=== PATIENT | male | born 1990 | race Caucasian/White ===

== ENCOUNTER 2017-03-30 14:02 | Inpatient (IN) | payer OTHER ==
[2017-03-30 15:16] VITALS: BMI 37.3
--- NOTE | 2017-03-30 19:01 | HP ---
CIWA Score - CIWA Score Nausea/Vomitin-No Nausea/No Vomiting Muscle Tremors: 4-Moderate,w/Arms Extend Anxiety: 4-Mod. Anxious/Guarded Agitation: 3 Paroxysmal Sweats: 1-Minimal Palms Moist Orientation: 0-Oriented Tacttile Disturbances: 0-None Auditory Disturbances: 0-None Visual Disturbances: 0-None Headache: 1-Very Mild CIWA-Ar Total Score: 13 Admission ROS BHS - HPI Chief Complaint: withdrawal sx Allergies/Adverse Reactions: Allergies Allergy/AdvReac Type Severity Reaction Status Date / Time No Known Allergies Allergy Verified 03/30/17 17:15 History of Present Illness: 27 years old male with long history of xanax nicotine dependence has hiv and chronic back pain and anxiety is admitted to detox Exam Limitations: No Limitations - Ebola screening Have you traveled outside of the country in the last 21 days: No Have you had contact with anyone from an Ebola affected area: No Have you been sick,other than usual withdrawal symptoms: No Do you have a fever: No - Review of Systems Constitutional: Changes in sleep, Weight Stable EENT: reports: No Symptoms Reported Respiratory: reports: No Symptoms reported Cardiac: reports: No Symptoms Reported GI: reports: Poor Fluid Intake, Indigestion, Abdominal cramping : reports: No Symptoms Reported Musculoskeletal: reports: Back Pain Integumentary: reports: No Symptoms Reported Neuro: reports: Seizure (2014 no treatment xanax related), Tremors Endocrine: reports: No Symptoms Reported Hematology: reports: No Symptoms Reported Psychiatric: reports: Judgement Intact, Orientated x3, Anxious Other Systems: Reviewed and Negative Patient History - Patient Medical History Hx Anemia: No Hx Asthma: No Hx Chronic Obstructive Pulmonary Disease (COPD): No Hx Cancer: No Hx Cardiac Disorders: No Hx Congestive Heart Failure: No Hx Hypertension: No Hx Hypercholesterolemia: No Hx Pacemaker: No HX Cerebrovascular Accident: No Hx Seizures: Yes (2014) Hx Dementia: No Hx Diabetes: No Hx Gastrointestinal Disorders: No Hx Liver Disease: No Hx Genitourinary Disorders: No Hx Sexually Transmitted Disorders: No Hx Renal Disease (ESRD): No Hx Thyroid Disease: No Hx Human Immunodeficiency Virus (HIV): Yes (2013) Hx Hepatitis C: Yes Hx Depression: Yes Hx Suicide Attempt: Yes ("I do not want to talk about") Hx Bipolar Disorder: No Hx Schizophrenia: No - Patient Surgical History Past Surgical History: No Hx Neurologic Surgery: No Hx Cataract Extraction: No Hx Cardiac Surgery: No Hx Lung Surgery: No Hx Breast Surgery: No Hx Breast Biopsy: No Hx Abdominal Surgery: No Hx Appendectomy: No Hx Cholecystectomy: No Hx Genitourinary Surgery: No Hx Orthopedic Surgery: No - PPD History Previous Implant?: Yes Documented Results: Negative w/o proof Implanted On Prior [facility] Admission?: No PPD to be Administered?: Yes - Smoking Cessation Smoking history: Current every day smoker Have you smoked in the past 12 months: Yes Aproximately how many cigarettes per day: 20 Cigars Per Day: 0 Hx Chewing Tobacco Use: No Initiated information on smoking cessation: Yes 'Breaking Loose' booklet given: 03/30/17 - Substance & Tx. History Hx Alcohol Use: No Hx Substance Use: Yes Substance Use Type: Cocaine, Heroin, Tranquilizers - Substances Abused Benzodiazepine (Klonopin) Route: Oral Frequency: Daily Amount used: 8mg Age of first use: 26 Date of Last Use: 03/30/17 Alprazolam (Xanax) Route: Oral Frequency: Daily Amount used: 14 mg Age of first use: 16 Date of Last Use: 03/30/17 Family Disease History - Family Disease History Family Disease History: CA: Mother (), Respiratory: Father, Other: Mother Admission Physical Exam S - Vital Signs Vital Signs: Vital Signs - 24 hr 03/30/17 15:13 Temperature 98.1 F Pulse Rate 88 Respiratory 18 Rate Blood Pressure 129/73 - Physical General Appearance: Yes: Appropriately Dressed, Mild Distress, Obese, Tremorous , Irritable, Sweating, Anxious HEENTM: Yes: Hearing grossly Normal, Normal ENT Inspection, Normocephalic, Normal Voice Respiratory: Yes: Chest Non-Tender, Lungs Clear, Normal Breath Sounds, No Respiratory Distress, No Accessory Muscle Use Neck: Yes: Supple, Trachea in good position Breast: Yes: Breasts Symetrical Cardiology: Yes: Regular Rhythm, Regular Rate, S1, S2 Abdominal: Yes: Non Tender, Soft, Increased Bowel Sounds Genitourinary: Yes: Within Normal Limits Back: Yes: Normal Inspection Musculoskeletal: Yes: full range of Motion, Gait Steady, Back pain, Muscle Pain Extremities: Yes: Normal Inspection (left inner elbow), Normal Range of Motion, Non-Tender, Tremors Neurological: Yes: Fully Oriented, Alert, Motor Strength 5/5, Normal Response, Depressed Affect Integumentary: Yes: Warm Lymphatic: Yes: Within Normal Limits - Diagnostic (1) Sedative, hypnotic or anxiolytic dependence with withdrawal, uncomplicated Current Visit: Yes Status: Acute (2) Methadone maintenance therapy patient Current Visit: Yes Status: Chronic Comment: 230 mg po daily verification pending (3) Cocaine dependence, uncomplicated Current Visit: Yes Status: Chronic (4) HIV (human immunodeficiency virus infection) Current Visit: Yes Status: Chronic Comment: will bring in the medication tomorrow 03/31/17 (5) GERD (gastroesophageal reflux disease) Current Visit: Yes Status: Chronic Qualifiers: Esophagitis presence: without esophagitis Qualified Code(s): K21.9 - Gastro -esophageal reflux disease without esophagitis (6) Nicotine dependence Current Visit: Yes Status: Acute Qualifiers: Nicotine product type: cigarettes Substance use status: in withdrawal Qualified Code(s): F17.213 - Nicotine dependence, cigarettes, with withdrawal (7) Hepatitis C Current Visit: Yes Status: Chronic Qualifiers: Viral hepatitis chronicity: carrier Qualified Code(s): B18.2 - Chronic viral hepatitis C Comment: schedule to treat (8) Neuropathy Current Visit: Yes Status: Chronic (9) Anxiety Current Visit: Yes Status: Suspected Cleared for Admission [facility] - Detox or Rehab [facility] Level of Care: Medically Managed Detox Regimen/Protocol: Valium [facility] Breath Alcohol Content Breath Alcohol Content: 0 Urine Drug Screen - Results Drug Screen Negative: No Urine Drug Screen Results: ALLAN-Cocaine, BZO-Benzodiazepines, MTD-Methadone
[2017-03-30] MEDS ORDERED: ACETAMINOPHEN 325 MG TABLET (FP) PO PRN (19:15)
[2017-03-30] MEDS ORDERED: P-EPHED 60MG/TRIPROLIDI 2.5MG TABLET PO PRN (19:15)
[2017-03-30] MEDS ORDERED: MAGNESIUM HYDROX 2400MG/30ML ORAL SUSPENSION 30 ML CUP PO PRN (19:15)
[2017-03-30] MEDS ORDERED: MAGNESIUM CITRATE 300 ML BOTTLE PO PRN (19:15)
[2017-03-30] MEDS ORDERED: guaiFENesin/D-METHORPHAN HB 10 ML UNIT-DOSE CUPS PO PRN (19:15)
[2017-03-30] MEDS ORDERED: diazePAM 5 MG TABLET PO ONE (19:15)
[2017-03-30] MEDS ORDERED: NICOTINE POLACRILEX 4 MG GUM BUC PRN (19:15)
[2017-03-30] MEDS ORDERED: LOPERAMIDE HCL 2 MG CAPSULE PO PRN (19:15)
[2017-03-30] MEDS ORDERED: MAG HYDROX/AL HYDROX/SIMETH 30 ML UNIT-DOSE CUP PO PRN (19:15)
[2017-03-30] MEDS ORDERED: MENTHOL/PHENOL 1 EACH UD MM PRN (19:15)
[2017-03-30] MEDS: GABAPENTIN 300 MG CAPSULE (FP) PO SCH (21:18)
[2017-03-30] MEDS: RANITIDINE HCL 150 MG TABLET (FP) PO SCH ×2 (21:18→22:21)
[2017-03-30] MEDS: THIAMINE HCL 100 MG TABLET (FP) PO SCH (21:19)
[2017-03-30] MEDS: diazePAM 5 MG TABLET PO SCH (22:21)
[2017-03-31 02:02] LABS: URINE APPEARANCE SLCLOUDY; URINE BILIRUBIN NEGATIVE (NEGATIVE); URINE BLOOD NEGATIVE (NEGATIVE); URINE COLOR AMBER; URINE GLUCOSE (UA) NEGATIVE (NEGATIVE); URINE KETONE NEGATIVE (NEGATIVE); URINE NITRITE NEGATIVE (NEGATIVE); URINE PROTEIN NEGATIVE (NEGATIVE); URINE UROBILINOGEN NEGATIVE mg/dL (0.2-1.0)
[2017-03-31] MEDS: GABAPENTIN 300 MG CAPSULE (FP) PO SCH ×4 (05:46→21:26)
[2017-03-31] MEDS: diazePAM 5 MG TABLET PO SCH ×3 (05:46→21:26)
[2017-03-31] MEDS ORDERED: METHADONE HCL 10 MG TABLET PO SCH (09:00)
[2017-03-31] MEDS ORDERED: METHADONE HCL 10 MG TABLET ONE (09:30)
[2017-03-31] MEDS ORDERED: METHADONE HCL 40 MG DISPERSABLE TABLET ONE (09:31)
[2017-03-31] MEDS: METHADONE 200 MG, METHADONE 30 MG PO SCH (09:33)
[2017-03-31] MEDS: NICOTINE 21 MG/24 HOURS TOPICAL PATCH TD SCH (09:36)
[2017-03-31] MEDS: PRENATAL VITAMINS W/ FOLIC ACID TABLET (FP) PO SCH (09:36)
[2017-03-31 09:55] LABS: MCH 31.3 pg (25.7-33.7); MCHC 34.4 g/dl (32.0-35.9); MEAN CELL VOLUME 90.9 fl (80-96); MEAN PLT VOLUME 10.4 fl (7.5-11.1); PLATELET COUNT 100 K/MM3 (134-434); RDW 12.8 % (11.9-15.9); WHITE BLOOD COUNT 4.9 K/mm3 (4.0-10.0)
[2017-03-31] MEDS: RANITIDINE HCL 150 MG TABLET (FP) PO SCH ×2 (10:20→21:26)
[2017-03-31] MEDS: diazePAM 5 MG TABLET PO PRN ×2 (10:20→17:09)
[2017-03-31 10:40] LABS: BASOPHIL %. 0.7 % (0-2.0); TOTAL CELLS COUNTED 100
--- NOTE | 2017-03-31 10:41 | CONSULT ---
[facility] Psychiatric Consult - Data Date of interview: 03/31/17 Admission source: [facility] Identifying data: First admission to [facility] for this 27 y/o male seeking detox treatment on for xanax,cocaine and opioid dependence.Patient is single,a father of one,domiciled,currently unemployed and supported on odd jobs. Substance Abuse History: Discussed in this session.Patient endorses active use of cocaine,xanax (prescribed and bought from streets).See [facility] report for details : Smoking history: Current every day smoker. Have you smoked in the past 12 months: Yes. Aproximately how many cigarettes per day: 20. Cigars Per Day: 0. Hx Chewing Tobacco Use: No. Initiated information on smoking cessation : Yes. 'Breaking Loose' booklet given: 03/30/17. - Substance & Tx. History. Hx Alcohol Use: No. Hx Substance Use: Yes. Substance Use Type: Cocaine, Heroin , Tranquilizers. - Substances Abused. Benzodiazepine (Klonopin). Route: Oral. Frequency: Daily. Amount used: 8mg. Age of first use: 26. Date of Last Use: 03/30/17. Alprazolam (Xanax). Route: Oral. Frequency: Daily. Amount used: 14 mg. Age of first use: 16. Date of Last Use: 03/30/17 Medical History: Hepatitis C,obesity and HIV infection since 2013 (on ART medications). Psychiatric History: Patient reports a history of multiple psychiatric hospitalizations.Known to [facility].Diagnosed with MDD and Anxiety Disorder.Brief treatment with sertraline.Mr Cox is currently on methadone maintenance (230 mg/day) at the [facility] in [facility].Also prescribed a regimen of xanax 2 mg po tid (confirmed by pharmacy claims of 03/26/17).Patient denies history of suicide attempts. Physical/Sexual Abuse/Trauma History: No reported history of abuse.Current HIV status. Additional Comment: Urine Drug Screen Results: ALLAN-Cocaine, BZO-Benzodiazepines , MTD-Methadone.Noted. Mental Status Exam - Mental Status Exam Alert and Oriented to: Time, Place, Person Cognitive Function: Good Patient Appearance: Well Groomed (obese ) Mood: Anxious, Apprehensive Affect: Mood Congruent Patient Behavior: Appropriate (friendly), Cooperative Speech Pattern: Clear, Appropriate Voice Loudness: Normal Thought Process: Goal Oriented Thought Disorder: Not Present Hallucinations: Denies Suicidal Ideation: Denies Homicidal Ideation: Denies Insight/Judgement: Poor Sleep: Well Appetite: Good Muscle strength/Tone: Normal Gait/Station: Normal Psychiatric Findings - Problem List ([place] 1, 2,3) (1) Opioid dependence on agonist therapy Current Visit: Yes Status: Acute (2) Sedative, hypnotic or anxiolytic dependence with withdrawal, uncomplicated Current Visit: Yes Status: Acute (3) Cocaine dependence, uncomplicated Current Visit: Yes Status: Acute (4) Nicotine dependence Current Visit: Yes Status: Acute Qualifiers: Nicotine product type: cigarettes Substance use status: in withdrawal Qualified Code(s): F17.213 - Nicotine dependence, cigarettes, with withdrawal (5) Substance induced mood disorder Current Visit: Yes Status: Acute (6) Depressive disorder Current Visit: Yes Status: Chronic (7) Anxiety disorder Current Visit: Yes Status: Chronic Comment: As per self-report.On prescribed xanax. - Initial Treatment Plan Initial Treatment Plan: Psychoeducation.Detoxification.Support.Will resume zoloft at the dose of 50 mg po daily (to be titrated during rehabilitation treatment).Side effects/benefits discussed with the patient.He agrees with this careplan.
[2017-03-31 10:51] LABS: ALBUMIN 3.3 g/dl (3.4-5.0); ALK PHOS 80 U/L (45-117); ANION GAP 6 (8-16); BILIRUBIN,TOTAL 0.7 mg/dL (0.2-1.0); CALCIUM 8.6 mg/dL (8.5-10.1); CO2 27 mmol/L (21-32); CREATININE 0.9 mg/dL (0.7-1.3); GLUCOSE,RANDOM 75 mg/dL (74-106); SGOT/AST 44 U/L (15-37); SGPT/ALT 102 U/L (12-78); TOT PROT 7.2 g/dl (6.4-8.2)
[2017-03-31 11:13] LABS: URINE LEUK ESTERASE Negative (NEGATIVE)
--- NOTE | 2017-03-31 16:42 | PN ---
S CIWA - CIWA Score Nausea/Vomitin-No Nausea/No Vomiting Muscle Tremors: 3 Anxiety: 4-Mod. Anxious/Guarded Agitation: 3 Paroxysmal Sweats: 3 Orientation: 0-Oriented Tacttile Disturbances: 2-Mild Itch/Numbness/Burn Auditory Disturbances: 0-None Visual Disturbances: 0-None Headache: 3-Moderate CIWA-Ar Total Score: 18 BHS Progress Note (SOAP) Subjective: Body Aches, Sweating, Tremors, Anxious, H/A. Objective: PT. A & O X 3, OBSERVED AMBULATING ON UNIT. NO ACUTE DISTRESS. 03/31/17 16:40 Vital Signs Temperature 97.4 F L 03/31/17 14:00 Pulse Rate 82 03/31/17 14:00 Respiratory Rate 20 03/31/17 14:00 Blood Pressure 104/65 03/31/17 14:00 O2 Sat by Pulse Oximetry (%) Laboratory Tests 03/30/17 03/31/17 03/31/17 21:54 07:45 07:45 WBC 4.9 RBC 4.72 Hgb 14.8 Hct 42.9 MCV 90.9 MCH 31.3 MCHC 34.4 RDW 12.8 Plt Count 100 L MPV 10.4 Total Counted 100 Neutrophils % (Manual) 53.4 Lymphocytes % (Manual) 34.4 Monocytes % (Manual) 8 Eosinophils % (Manual) 3.5 Basophils % (Manual) 0.7 Manual Slide Review No Result Required. Sodium 140 Potassium 3.9 Chloride 107 Carbon Dioxide 27 Anion Gap 6 L BUN 11 Creatinine 0.9 Creat Clearance w eGFR > 60 Random Glucose 75 Calcium 8.6 Total Bilirubin 0.7 AST 44 H ALT 102 H Alkaline Phosphatase 80 Total Protein 7.2 Albumin 3.3 L Urine Color Arlin Urine Appearance Slcloudy Urine pH 5.0 Ur Specific [place] 1.025 Urine Protein Negative Urine Glucose (UA) Negative Urine Ketones Negative Urine Blood Negative Urine Nitrite Negative Urine Bilirubin Negative Urine Urobilinogen Negative Ur Leukocyte Esterase Negative RPR Titer 03/31/17 07:45 WBC RBC Hgb Hct MCV MCH MCHC RDW Plt Count MPV Total Counted Neutrophils % (Manual) Lymphocytes % (Manual) Monocytes % (Manual) Eosinophils % (Manual) Basophils % (Manual) Manual Slide Review Sodium Potassium Chloride Carbon Dioxide Anion Gap BUN Creatinine Creat Clearance w eGFR Random Glucose Calcium Total Bilirubin AST ALT Alkaline Phosphatase Total Protein Albumin Urine Color Urine Appearance Urine pH Ur Specific [place] Urine Protein Urine Glucose (UA) Urine Ketones Urine Blood Urine Nitrite Urine Bilirubin Urine Urobilinogen Ur Leukocyte Esterase RPR Titer Nonreactive LABS NOTED. Assessment: 03/31/17 16:41 WITHDRAWAL SYMPTOMS. Plan: CONTINUE DETOX. INCREASE DAILY PO FLUID INTAKE.
[2017-03-31] MEDS: THIAMINE HCL 100 MG TABLET (FP) PO SCH (21:26)
[2017-04-01] MEDS: diazePAM 5 MG TABLET PO PRN ×3 (01:49→17:09)
[2017-04-01] MEDS ORDERED: METHADONE HCL 10 MG TABLET ONE (03:00)
[2017-04-01] MEDS ORDERED: METHADONE HCL 40 MG DISPERSABLE TABLET ONE (03:01)
[2017-04-01] MEDS: METHADONE 200 MG, METHADONE 30 MG PO SCH (05:53)
[2017-04-01] MEDS: GABAPENTIN 300 MG CAPSULE (FP) PO SCH ×3 (05:54→22:25)
[2017-04-01] MEDS: diazePAM 5 MG TABLET PO SCH ×2 (09:47→22:25)
[2017-04-01] MEDS: SERTRALINE HCL 50 MG TABLET (FP) PO SCH (09:47)
[2017-04-01] MEDS: RANITIDINE HCL 150 MG TABLET (FP) PO SCH ×2 (09:47→22:25)
[2017-04-01] MEDS: PRENATAL VITAMINS W/ FOLIC ACID TABLET (FP) PO SCH (09:47)
[2017-04-01] MEDS: NICOTINE 21 MG/24 HOURS TOPICAL PATCH TD SCH (10:46)
[2017-04-01] MEDS: hydrOXYzine PAMOATE 50 MG CAPSULE (FP) PO PRN (10:46)
[2017-04-01] MEDS ORDERED: diazePAM 5 MG TABLET PO ONE (11:00)
--- NOTE | 2017-04-01 13:26 | PN ---
S CIWA - CIWA Score Nausea/Vomitin-Int. Nausea w/Dry Heave Muscle Tremors: 4-Moderate,w/Arms Extend Anxiety: 4-Mod. Anxious/Guarded Agitation: 4-Moderately Restless Paroxysmal Sweats: 4-Forehead w/Sweat Beads Orientation: 0-Oriented Tacttile Disturbances: 1-Very Mild Itch/Numbness Auditory Disturbances: 0-None Visual Disturbances: 0-None Headache: 1-Very Mild CIWA-Ar Total Score: 22 BHS Progress Note (SOAP) Subjective: Sweating, chills, tremor, interrupted sleep. Patient stated he feels like feeling AMA because his symptoms makes him feel miserable. Patient encouraged to finish detox. Patient aware that he is expected to experience some types of withdrawal symptoms. He has experienced these symptoms in the past. As per patient, he has been 11/2 year clean from heroin and that he was Rx benzo and got hooked on benzo because he was taking more than was prescribed. Patient also reports seizure with aura (smells pine delphine prior to breakthrough seizure) and that he was smelling it at the moment. 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 Patient encouraged to sit or lay down whenever he anticipated any seizure activity. As per patient, the smell of pine delphine went away gradually. Patient agreed to complete detox. Patient aware that hand sign writer will order vistaril prn to help with his anxiety. He reports having a 6 month old daughter and wants to be there for her. Patient needs much encouragement in completing detox. Objective: 04/01/17 13:26 Last Vital Signs Temp Pulse Resp BP Pulse Ox 97.7 F 82 20 112/75 04/01/17 09:49 04/01/17 09:49 04/01/17 09:49 04/01/17 09:49 Laboratory Tests 03/30/17 03/31/17 03/31/17 21:54 07:45 07:45 WBC 4.9 RBC 4.72 Hgb 14.8 Hct 42.9 MCV 90.9 MCH 31.3 MCHC 34.4 RDW 12.8 Plt Count 100 L MPV 10.4 Total Counted 100 Neutrophils % (Manual) 53.4 Lymphocytes % (Manual) 34.4 Monocytes % (Manual) 8 Eosinophils % (Manual) 3.5 Basophils % (Manual) 0.7 Manual Slide Review No Result Required. Sodium 140 Potassium 3.9 Chloride 107 Carbon Dioxide 27 Anion Gap 6 L BUN 11 Creatinine 0.9 Creat Clearance w eGFR > 60 Random Glucose 75 Calcium 8.6 Total Bilirubin 0.7 AST 44 H ALT 102 H Alkaline Phosphatase 80 Total Protein 7.2 Albumin 3.3 L Urine Color Arlin Urine Appearance Slcloudy Urine pH 5.0 Ur Specific [place] 1.025 Urine Protein Negative Urine Glucose (UA) Negative Urine Ketones Negative Urine Blood Negative Urine Nitrite Negative Urine Bilirubin Negative Urine Urobilinogen Negative Ur Leukocyte Esterase Negative RPR Titer 03/31/17 07:45 WBC RBC Hgb Hct MCV MCH MCHC RDW Plt Count MPV Total Counted Neutrophils % (Manual) Lymphocytes % (Manual) Monocytes % (Manual) Eosinophils % (Manual) Basophils % (Manual) Manual Slide Review Sodium Potassium Chloride Carbon Dioxide Anion Gap BUN Creatinine Creat Clearance w eGFR Random Glucose Calcium Total Bilirubin AST ALT Alkaline Phosphatase Total Protein Albumin Urine Color Urine Appearance Urine pH Ur Specific [place] Urine Protein Urine Glucose (UA) Urine Ketones Urine Blood Urine Nitrite Urine Bilirubin Urine Urobilinogen Ur Leukocyte Esterase RPR Titer Nonreactive Labs noted Assessment: 04/01/17 13:26 Withdrawal symptoms Plan: Continue detox Encouraged to drink lots of water Valium 5mg PO x 1 dose in addition to 5mg scheduled dose to prevent breakthrough seizure as patient reported seizure with aura Vistaril 50mg PO q6hr prn anxiety Ambien 10mg PO qhs prn insomnia
[2017-04-01] MEDS: THIAMINE HCL 100 MG TABLET (FP) PO SCH (22:25)
[2017-04-01] MEDS: ZOLPIDEM TARTRATE 5 MG TABLET PO PRN (22:27)
[2017-04-02] MEDS: diazePAM 5 MG TABLET PO PRN ×3 (02:47→14:49)
[2017-04-02] MEDS: hydrOXYzine PAMOATE 50 MG CAPSULE (FP) PO PRN (02:47)
[2017-04-02] MEDS ORDERED: METHADONE HCL 10 MG TABLET ONE (03:42)
[2017-04-02] MEDS ORDERED: METHADONE HCL 40 MG DISPERSABLE TABLET ONE (03:43)
[2017-04-02] MEDS: METHADONE 200 MG, METHADONE 30 MG PO SCH (06:09)
[2017-04-02] MEDS: GABAPENTIN 300 MG CAPSULE (FP) PO SCH ×3 (06:09→22:27)
[2017-04-02] MEDS: NICOTINE 21 MG/24 HOURS TOPICAL PATCH TD SCH (10:18)
[2017-04-02] MEDS: SERTRALINE HCL 50 MG TABLET (FP) PO SCH (10:18)
[2017-04-02] MEDS: RANITIDINE HCL 150 MG TABLET (FP) PO SCH ×2 (10:18→22:27)
[2017-04-02] MEDS: PRENATAL VITAMINS W/ FOLIC ACID TABLET (FP) PO SCH (10:18)
[2017-04-02] MEDS: diazePAM 5 MG TABLET PO SCH ×2 (10:19→22:26)
--- NOTE | 2017-04-02 11:22 | PN ---
BHS Progress Note (SOAP) Subjective: ANXIETY,,IRRITABILITY,RESTLESS;NESS, HOT/COLD SWEATS,TREMORS,FATIGUE. Objective: 04/02/17 11:22 Vital Signs Temperature 96.1 F L 04/02/17 09:04 Pulse Rate 90 04/02/17 09:04 Respiratory Rate 18 04/02/17 09:04 Blood Pressure 107/75 04/02/17 09:04 O2 Sat by Pulse Oximetry (%) Laboratory Last Values WBC 4.9 K/mm3 (4.0-10.0) 03/31/17 07:45 RBC 4.72 M/mm3 (4.00-5.60) 03/31/17 07:45 Hgb 14.8 GM/dL (11.7-16.9) 03/31/17 07:45 Hct 42.9 % (35.4-49) 03/31/17 07:45 MCV 90.9 fl (80-96) 03/31/17 07:45 MCH 31.3 pg (25.7-33.7) 03/31/17 07:45 MCHC 34.4 g/dl (32.0-35.9) 03/31/17 07:45 RDW 12.8 % (11.9-15.9) 03/31/17 07:45 Plt Count 100 K/MM3 (134-434) L 03/31/17 07:45 MPV 10.4 fl (7.5-11.1) 03/31/17 07:45 Total Counted 100 03/31/17 07:45 Neutrophils % (Manual) 53.4 % (42.8-82.8) 03/31/17 07:45 Lymphocytes % (Manual) 34.4 % (8-40) 03/31/17 07:45 Monocytes % (Manual) 8 % (3.8-10.2) 03/31/17 07:45 Eosinophils % (Manual) 3.5 % (0-4.5) 03/31/17 07:45 Basophils % (Manual) 0.7 % (0-2.0) 03/31/17 07:45 Manual Slide Review No Result Required. 03/31/17 07:45 Sodium 140 mmol/L (136-145) 03/31/17 07:45 Potassium 3.9 mmol/L (3.5-5.1) 03/31/17 07:45 Chloride 107 mmol/L (98-107) 03/31/17 07:45 Carbon Dioxide 27 mmol/L (21-32) 03/31/17 07:45 Anion Gap 6 (8-16) L 03/31/17 07:45 BUN 11 mg/dL (7-18) 03/31/17 07:45 Creatinine 0.9 mg/dL (0.7-1.3) 03/31/17 07:45 Creat Clearance w eGFR > 60 (>60) 03/31/17 07:45 Random Glucose 75 mg/dL (74-106) 03/31/17 07:45 Calcium 8.6 mg/dL (8.5-10.1) 03/31/17 07:45 Total Bilirubin 0.7 mg/dL (0.2-1.0) 03/31/17 07:45 AST 44 U/L (15-37) H 03/31/17 07:45 ALT 102 U/L (12-78) H 03/31/17 07:45 Alkaline Phosphatase 80 U/L (45-117) 03/31/17 07:45 Total Protein 7.2 g/dl (6.4-8.2) 03/31/17 07:45 Albumin 3.3 g/dl (3.4-5.0) L 03/31/17 07:45 Urine Color Arlin 03/30/17 21:54 Urine Appearance Slcloudy 03/30/17 21:54 Urine pH 5.0 (5.0-8.0) 03/30/17 21:54 Ur Specific [place] 1.025 (1.001-1.035) 03/30/17 21:54 Urine Protein Negative (NEGATIVE) 03/30/17 21:54 Urine Glucose (UA) Negative (NEGATIVE) 03/30/17 21:54 Urine Ketones Negative (NEGATIVE) 03/30/17 21:54 Urine Blood Negative (NEGATIVE) 03/30/17 21:54 Urine Nitrite Negative (NEGATIVE) 03/30/17 21:54 Urine Bilirubin Negative (NEGATIVE) 03/30/17 21:54 Urine Urobilinogen Negative mg/dL (0.2-1.0) 03/30/17 21:54 Ur Leukocyte Esterase Negative (NEGATIVE) 03/30/17 21:54 RPR Titer Nonreactive (NONREACTIVE) 03/31/17 07:45 Assessment: 04/02/17 11:22 WITHDRAWAL SX Plan: CONTINUE DETOX
[2017-04-02] MEDS: ZOLPIDEM TARTRATE 5 MG TABLET PO PRN (22:26)
[2017-04-02] MEDS: THIAMINE HCL 100 MG TABLET (FP) PO SCH (22:26)
--- NOTE | 2017-04-03 01:04 | EKG ---
Test Reason : Blood Pressure : / mmHG Vent. Rate : 067 BPM Atrial Rate : 067 BPM P-R Int : 152 ms QRS Dur : 102 ms QT Int : 438 ms P-R-T Axes : 061 033 034 degrees QTc Int : 462 ms NORMAL SINUS RHYTHM NORMAL ECG NO PREVIOUS ECGS AVAILABLE Confirmed by JOSE MONIQUE MD ([id number]) on 04/03/2017 1:04:18 AM Referred By: Confirmed By:JOSE MONIQUE MD
[2017-04-03] MEDS ORDERED: METHADONE HCL 40 MG DISPERSABLE TABLET ONE (03:56)
[2017-04-03] MEDS ORDERED: METHADONE HCL 10 MG TABLET ONE (03:56)
[2017-04-03] MEDS: METHADONE 200 MG, METHADONE 30 MG PO SCH (06:08)
[2017-04-03] MEDS: GABAPENTIN 300 MG CAPSULE (FP) PO SCH (06:08)
[2017-04-03 09:10] VITALS: BP 115/74; PULSE 71; TEMP 95.8
--- NOTE | 2017-04-03 09:51 | DS ---
[facility] Detox Discharge Summary Admission Date: 03/30/17 Discharge Date: 04/03/17 - History Present History: Cocaine Dependence, Sedative Dependence, MMTP Additional Comments: DETOX COMPLETED. ALERT O X 3. NAD. PT REMINDED TO FOLLOW UP WITH HIS PMD, DR MELONIE CORMIER AT [place], [place] FOR MEDICAL MANAGEMENT OF COMORBID CONDITIONS. Pertinent Past History: HIV+ GERD HEP C NEUROPATHY - Physical Exam Results Vital Signs: Vital Signs Temperature 95.8 F L 04/03/17 09:08 Pulse Rate 71 04/03/17 09:08 Respiratory Rate 18 04/03/17 09:08 Blood Pressure 115/74 04/03/17 09:08 O2 Sat by Pulse Oximetry (%) Pertinent Admission Physical Exam Findings: WITHDRAWAL SX - Treatment Hospital Course: Detox Protocol Followed, Detoxed Safely, Responded well, Discharged Condition Good, Rehab Referral Accepted Patient has Accepted a Rehab Referral to: [facility] - Medication Discharge Medications: Ambulatory Orders Alprazolam [Xanax] 2 mg PO TID 03/30/17 Elviteg/Cob/Emtri/Tenofo Disop [Stribild (Non-Formulary)] 1 tab PO DAILY Gabapentin [Neurontin -] 300 mg PO Q8H 03/30/17 - Diagnosis (1) Sedative, hypnotic or anxiolytic dependence with withdrawal, uncomplicated Current Visit: Yes Status: Acute (2) Cocaine dependence, uncomplicated Current Visit: Yes Status: Acute (3) GERD (gastroesophageal reflux disease) Current Visit: Yes Status: Chronic Qualifiers: Esophagitis presence: without esophagitis Qualified Code(s): K21.9 - Gastro -esophageal reflux disease without esophagitis (4) HIV (human immunodeficiency virus infection) Current Visit: Yes Status: Chronic (5) Hepatitis C Current Visit: Yes Status: Chronic Qualifiers: Viral hepatitis chronicity: carrier Qualified Code(s): B18.2 - Chronic viral hepatitis C (6) Methadone maintenance therapy patient Current Visit: Yes Status: Chronic (7) Neuropathy Current Visit: Yes Status: Chronic (8) Nicotine dependence Current Visit: Yes Status: Acute Qualifiers: Nicotine product type: cigarettes Substance use status: in withdrawal Qualified Code(s): F17.213 - Nicotine dependence, cigarettes, with withdrawal (9) Obesity (BMI 30-39.9) Current Visit: Yes Status: Chronic - AMA Did Patient Leave Against Medical Advice: No
[2017-04-03] MEDS ORDERED: diazePAM 5 MG TABLET PO SCH (10:00)
[2017-04-03] MEDS: RANITIDINE HCL 150 MG TABLET (FP) PO SCH (10:30)
[2017-04-03] MEDS: PRENATAL VITAMINS W/ FOLIC ACID TABLET (FP) PO SCH (10:30)
[2017-04-03] MEDS: SERTRALINE HCL 50 MG TABLET (FP) PO SCH (10:30)
[2017-04-03] MEDS: NICOTINE 21 MG/24 HOURS TOPICAL PATCH TD SCH (10:31)
== END 2017-04-03 11:52 | disposition home or self-care (01) | DRG 773 ==
LOC: YASAS 14:02 → Y3N 17:36
PROVIDERS: ADMIT Internal Medicine; ATTEND Internal Medicine
PROC: HZ2ZZZZ Detoxification Services for Substance Abuse Treatment (ICD-10-PCS; principal; 2017-03-30)
DX: F11.20 Opioid dependence, uncomplicated (principal); F13.230 Sedative, hypnotic or anxiolytic dependence with withdrawal, uncomplicated; F14.20 Cocaine dependence, uncomplicated; F17.213 Nicotine dependence, cigarettes, with withdrawal; F34.1 Dysthymic disorder; F41.9 Anxiety disorder, unspecified; F19.24 Other psychoactive substance dependence with psychoactive substance-induced mood disorder; G62.9 Polyneuropathy, unspecified; B18.2 Chronic viral hepatitis C; Z21 Asymptomatic human immunodeficiency virus [HIV] infection status; E66.9 Obesity, unspecified; Z86.69 Personal history of other diseases of the nervous system and sense organs
CPT/HCPCS: 36415; 80053; 81003; 85027; 86593; 93005; 93010